=== PATIENT | female | born 1960 | race Hispanic/Latino ===

== ENCOUNTER 2019-11-03 12:21 | Emergency (ER) | payer OTHER ==
[~2019-11-03] VITALS: Ht 167.6 cm; Wt 77.1 kg
[2019-11-03] MEDS ORDERED: TRAMADOL HCL 50 MG TAB PO ONE (14:45)
--- NOTE | 2019-11-03 15:16 | Diagnostic Imaging Report ---
Left shoulder, 2 views. History: Left shoulder pain for 3 months. Findings: The soft tissues are normal. Bone mineralization is normal. There is no evidence of fracture, AC separation, or dislocation. There are no lytic or sclerotic lesions. The joint spaces are within normal limits. IMPRESSION: Normal left shoulder. Signed by: Lester Cantrell on 11/03/2019 3:13 PM
--- OUTSIDE RECORDS SUMMARY | 2019-11-05 13:56 | XMS REPORT ---
Author [facility] Address Unknown Phone Unavailable Care Team Providers Care Electrician Supervisor Substation Name Role Phone Jesse ZULUAGA Unavailable Unavailable Payers Payer Name Policy Type Policy Number Effective Date Expiration Date Problems This patient has no known problems. Allergies, Adverse Reactions, Alerts Allergy Name Allergy Type Status Severity Reaction(s) Onset Date Inactive Date Treating Clinician Comments morphine DA Active U 2019-05-09 00:00:00 codeine DA Active U 2019-05-09 00:00:00 Medications This patient has no known medications. Results Test Description Test Time Test Comments Text Results Atomic Results Result Comments SHOULDER LEFT COMPLETE 2019-11-03 15:12:00 [place] [address] Patient Name: MORRIS RIVERA MR #: [id number] : 1960 Age/Sex: 59/F Req #: [id number] Adm Physician: Ordered by: CATALINA ZULUAGA MD Report #: [id number] Location: ER Room/Bed: Procedure: [id number] DX/SHOULDER LEFT COMPLETE Exam Date: 11/03/19 Exam Time: 1325 REPORT STATUS: Signed Left shoulder, 2 views. History: Left shoulder pain for 3 months. Findings: The soft tissues are normal. Bone mineralization is normal. There is no evidence of fracture, AC separation, or dislocation. There are no lytic or sclerotic lesions. The joint spaces are within normal limits. IMPRESSION: Normal left shoulder. Signed by: Lester Cantrell on 11/03/2019 3:13 PM Dictated By: LESTER CANTRELL MD 12 Transcribed By: SUZE on 11/03/191512 COPY TO: CATALINA ZULUAGA MD - XR SHOULDER 2 + V RT 2019-05-09 11:23:00 FAX: Tiara BrightArabella L [phone] [place]: St: [facility] FAX: Shabnam Pierre Name: MORRIS SETH [facility] : 1960 Age/S: 59/F [address] [facility] Unit #: [id number] Loc: [place] [address] Phys: Shabnam Pierre NP Acct: [id number] Dis Date: Status: REG ER PHONE #: [phone] Exam Date: 05/09/2019 1101 FAX #: [phone] Reason: RIGHT SHOULDER PAIN EXAMS: CPT CODE: [id number] XR SHOULDER 2 + V RT [id number] REASON FOR EXAM: RIGHT SHOULDER PAIN EXAM ORDER DATE: 05/09/2019 10:33 AM Ordering Gabriella: Shabnam Pierre NP PROCEDURE: - XR SHOULDER 2 + V RT FINDINGS: 3 views of the right shoulder were obtained. The osseous structures are unremarkable in size and shape. The joint spaces are maintained. There is normal alignment of the humeral head. No evidence of fracture. The acromial clavicular joint is intact IMPRESSION: Unremarkable right shoulder at 1123 Reported and signed by: Kalyan Bella M.D. CC: Arabella Bright THREADING MACHINE [employer]; Shabnam Pierre NP Technologist: PATSY GUTIERREZ (R) Trnscrd Date/Time/By: 05/09/2019 (1123) : By: JustinaVTL Orig Print D/T: S: 05/09/2019 (1126) PAGE 1 Signed Report
== END 2019-11-03 18:51 | disposition home or self-care (01) ==
LOC: ER 12:21
DX: M25.512 Pain in left shoulder (principal); I10 Essential (primary) hypertension
CPT/HCPCS: 99284